=== PATIENT | female | born 1940 | race Caucasian/White ===

== ENCOUNTER 2022-02-09 08:18 | Inpatient (IN) | payer MEDICARE ==
[2022-02-09 09:03] LABS: Hemoglobin 9.7 g/dL (12.0-16.0); Mean Corpuscular HGB CONC 32.2 g/dL (32.0-36.0); Mean Corpuscular Hemoglobin 32.1 pg (27.0-31.0); Mean Corpuscular Volume 99.6 fl (78.0-98.0); Red Blood Cell (RBC) Count 3.01 mill/uL (4.20-5.40)
[2022-02-09 09:22] LABS: ALT (SGPT) 12 U/L (8-55); AST (SGOT) 20 U/L (5-34); Albumin 4.1 g/dL (3.4-4.8); Alkaline Phosphatase 95 U/L (40-110); Anion Gap 16 mmol/L (10-20); BUN (Urea Nitrogen) 15 mg/dL (9.8-20.1); Bilirubin, Total 2.1 mg/dL (0.2-1.2); Calc. Creatinine Clearance 0 mL/min (70-130); Calcium 9.3 mg/dL (7.8-10.44); Carbon Dioxide 26 mmol/L (23-31); Chloride 99 mmol/L (98-107); Estimated GFR 47; Globulin 2.2 g/dL (2.4-3.5); Glucose 202 mg/dL (83-110); Potassium 4.1 mmol/L (3.5-5.1); Protein, Total 6.3 g/dL (5.8-8.1); Sodium 137 mmol/L (136-145)
[2022-02-09 09:28] LABS: #Lymphocytes 0.6 thou/uL (1.20-3.40); #Monocytes 0.3 thou/uL (0.11-0.59); #Neutrophils 3.1 thou/uL (1.40-6.50); %Basophils 0.3 % (0.0-1.0); %Monocytes 7.3 % (0.0-10.0); %Neutrophils 77.4 % (42.0-75.0); Platelet Count 111 10x3/uL (130-400); Platelet Morphology Comment Appears Decreased; RBC Distribution Width 12.6 % (11.5-14.5); RBC Morphology Normal
[2022-02-09] MEDS ORDERED: Morphine 4 MG/ML VIAL ONE (10:20)
[2022-02-09] MEDS ORDERED: Ketorolac Tromethamine 30 MG/ML VIAL ONE (11:34)
[2022-02-09] MEDS ORDERED: Dextrose 5% in Water 1,000 ML IV PRN (12:20)
[2022-02-09] MEDS ORDERED: hydrALAZINE 20 MG/ML VIAL SLOW IVP PRN (12:20)
[2022-02-09] MEDS ORDERED: Ondansetron ODT 4 MG TAB PO PRN (12:20)
[2022-02-09] MEDS ORDERED: Dextrose 50% Abboject 50 ML SYRINGE SLOW IVP PRN (12:20)
[2022-02-09] MEDS ORDERED: Insulin Regular 300 UNITS/3 ML VIAL SC PRN ×2 (12:20)
[2022-02-09] MEDS ORDERED: Ondansetron PF 4 MG/2 ML Vial IVP PRN (12:20)
[2022-02-09] MEDS ORDERED: Acetaminophen/Codeine 30-300mg Tablet PO PRN (12:24)
[2022-02-09] MEDS ORDERED: Cyclobenzaprine 10 MG TAB PO PRN (12:26)
[2022-02-09] MEDS ORDERED: Morphine 4 MG/ML VIAL SLOW IVP PRN (12:42)
[2022-02-09] MEDS ORDERED: Clindamycin/D5W 900 MG in Premix Bag 1 BAG IVPB SCH (13:45)
[2022-02-09] MEDS: Acetaminophen 325 MG TAB PO SCH ×2 (17:27→23:19)
[2022-02-09 17:37] VITALS: BMI 32.2
[2022-02-09 19:18] LABS: Bacteria/HPF None Seen HPF (None Seen); Bilirubin Negative (Negative); Blood, Urine Negative (Negative); Clarity Clear (Clear); Glucose, Urine (Dipstick) Normal (Negative); Ketone, Urine Negative (Negative); Leukocyte Negative Leu/uL (Negative); Nitrite Negative (Negative); Protein, Urine (Dipstick) Negative (Neg-Trace); RBC/HPF 0-3 HPF (0-3); Specific Gravity, Urine 1.009 (1.002-1.036); Squamous Epithelial 0-3 HPF (0-3); Urobilinogen Normal mg/dL (Less than 2); WBC/HPF 0-3 HPF (0-3); pH, Urine 5.5 (5.0-9.0)
[2022-02-09] MEDS: Senokot S 8.6-50 MG TAB PO SCH (20:23)
[2022-02-09] MEDS ORDERED: Famotidine 20 MG TAB PO SCH (21:00)
[2022-02-09] MEDS ORDERED: Sodium Chloride 0.9% 1,000 ML IV SCH (23:00)
[2022-02-10] MEDS: Acetaminophen 325 MG TAB PO SCH ×4 (05:42→23:18)
[2022-02-10 05:55] LABS: #Lymphocytes 0.9 thou/uL (1.20-3.40); #Monocytes 0.3 thou/uL (0.11-0.59); #Neutrophils 2.2 thou/uL (1.40-6.50); %Basophils 0.5 % (0.0-1.0); %Eosinophils 0.7 % (0.0-10.0); %Lymphocytes 26.5 % (21.0-51.0); %Monocytes 8.1 % (0.0-10.0); %Neutrophils 64.2 % (42.0-75.0); Hemoglobin 8.8 g/dL (12.0-16.0); Mean Corpuscular HGB CONC 32.9 g/dL (32.0-36.0); Platelet Count 101 10x3/uL (130-400); RBC Distribution Width 12.5 % (11.5-14.5); Red Blood Cell (RBC) Count 2.66 mill/uL (4.20-5.40); White Blood Cell (WBC) Count 3.4 10x3/uL (4.8-10.8)
[2022-02-10 06:09] LABS: Phosphorus 3.2 mg/dL (2.3-4.7)
[2022-02-10 06:10] LABS: Anion Gap 13 mmol/L (10-20); BUN (Urea Nitrogen) 11 mg/dL (9.8-20.1); Calc. Creatinine Clearance 59 mL/min (70-130); Calcium 8.7 mg/dL (7.8-10.44); Carbon Dioxide 28 mmol/L (23-31); Chloride 104 mmol/L (98-107); Estimated GFR 62; Glucose 162 mg/dL (83-110); Magnesium 1.7 mg/dL (1.6-2.6); Potassium 3.6 mmol/L (3.5-5.1); Sodium 141 mmol/L (136-145)
[2022-02-10] MEDS ORDERED: Magnesium 2 GM/50 ML(in water) 2 GM in Premix Bag 1 BAG IVPB SCH (09:00)
[2022-02-10] MEDS ORDERED: Potassium Phosphate 30 MMOL, Magnesium Sulfate 2 GM in Sodium Chloride 0.9% 250 ML 250 ML IVPB SCH (09:00)
[2022-02-10] MEDS ORDERED: Albuterol Sulfate 2.5 mg/3 ml Neb NEB SCH (09:00)
[2022-02-10] MEDS: Carvedilol 6.25 MG TAB PO SCH ×2 (10:44→22:05)
[2022-02-10] MEDS: Polyethylene Glycol 3350 17 GM Packet PO SCH (10:45)
[2022-02-10] MEDS: Senokot S 8.6-50 MG TAB PO SCH ×2 (10:45→22:05)
[2022-02-10] MEDS: Fluticasone Propionate Nasal Spray 16 gm Bottle NASAL SCH (10:45)
[2022-02-10] MEDS: Ferrous Sulfate 325 MG TAB PO SCH (10:45)
[2022-02-10] MEDS: Nystatin Powder 15 GM BOT TOP SCH ×2 (15:18→22:06)
[2022-02-10] MEDS ORDERED: Dexmedetomidine 200 MCG/2 ML VIAL ONE (16:56)
[2022-02-10] MEDS ORDERED: Famotidine/PF 20 mg/2ml Vial ONE (16:56)
[2022-02-10] MEDS ORDERED: Ketamine 50 MG/ML (10ML VIAL) ONE (16:56)
[2022-02-10] MEDS ORDERED: Clindamycin/D5W 900 mg/50 ml Premix Bag ONE (17:05)
[2022-02-10] MEDS ORDERED: FENTANYL 50 MCG/ML 1 ML VIAL ONE ×2 (17:12→19:03)
[2022-02-10] MEDS ORDERED: Ondansetron PF 4 MG/2 ML Vial ONE (17:20)
[2022-02-10] MEDS ORDERED: Rocuronium Bromide 10 MG/ML (10ML VIAL) ONE (17:20)
[2022-02-10] MEDS ORDERED: Dexamethasone 20 MG/5 ML VIAL ONE (17:20)
[2022-02-10] MEDS ORDERED: Phenylephrine 10 MG/ML VIAL ONE (17:20)
[2022-02-10] MEDS ORDERED: PROPOFOL 200 MG/20 ML VIAL ONE (17:20)
[2022-02-10] MEDS ORDERED: PHENYLEPHRINE-NS 100 MCG/ML 10 ML SYRINGE ONE (18:19)
[2022-02-10] MEDS ORDERED: Promethazine HCl 25 MG/ML VIAL IM PRN (18:30)
[2022-02-10] MEDS ORDERED: PACU-Morphine 4MG/ML VIAL SLOW IVP PRN (18:30)
[2022-02-10] MEDS ORDERED: Ondansetron HCl/PF 4 MG/2 ML Vial IVP PRN (18:30)
[2022-02-10] MEDS ORDERED: Morphine Sulfate 2 MG/ML SYRINGE SLOW IVP PRN (18:30)
[2022-02-10] MEDS ORDERED: HYDROmorphone 2 MG/ML VIAL SLOW IVP PRN (18:30)
[2022-02-10] MEDS ORDERED: Promethazine HCl 25 MG/ML VIAL IVPB PRN (18:30)
[2022-02-10] MEDS ORDERED: SUGAMMADEX SODIUM 200 MG/2 ML VIAL ONE (18:44)
[2022-02-10] MEDS: Albuterol 200 PUFF (6.7GM INHALER) INH SCH (19:18)
[2022-02-10] MEDS: Clindamycin/D5W 900 MG in Premix Bag 1 BAG IVPB SCH (22:06)
[2022-02-10] MEDS: Donepezil HCl 10 MG TAB PO SCH (22:06)
[2022-02-11] MEDS: Clindamycin/D5W 900 MG in Premix Bag 1 BAG IVPB SCH (05:25)
[2022-02-11] MEDS: Acetaminophen 325 MG TAB PO SCH ×3 (05:25→17:40)
[2022-02-11] MEDS: Albuterol 200 PUFF (6.7GM INHALER) INH SCH ×2 (05:50→18:30)
[2022-02-11 06:04] LABS: #Lymphocytes 0.5 thou/uL (1.20-3.40); #Monocytes 0.2 thou/uL (0.11-0.59); #Neutrophils 4.9 thou/uL (1.40-6.50); %Eosinophils 0.2 % (0.0-10.0); %Lymphocytes 8.7 % (21.0-51.0); %Monocytes 2.9 % (0.0-10.0); %Neutrophils 88.2 % (42.0-75.0); Hemoglobin 8.6 g/dL (12.0-16.0); Mean Corpuscular HGB CONC 33.3 g/dL (32.0-36.0); Mean Platelet Volume 8.5 fL (7.4-10.4); Platelet Count 113 10x3/uL (130-400); RBC Distribution Width 12.5 % (11.5-14.5); Red Blood Cell (RBC) Count 2.52 mill/uL (4.20-5.40); White Blood Cell (WBC) Count 5.6 10x3/uL (4.8-10.8)
[2022-02-11 06:25] LABS: Anion Gap 13 mmol/L (10-20); BUN (Urea Nitrogen) 13 mg/dL (9.8-20.1); Calc. Creatinine Clearance 62 mL/min (70-130); Calcium 8.4 mg/dL (7.8-10.44); Carbon Dioxide 27 mmol/L (23-31); Chloride 106 mmol/L (98-107); Estimated GFR 66; Glucose 225 mg/dL (83-110); Magnesium 2.2 mg/dL (1.6-2.6); Phosphorus 5.2 mg/dL (2.3-4.7); Potassium 4.5 mmol/L (3.5-5.1); Sodium 141 mmol/L (136-145)
[2022-02-11] MEDS ORDERED: Ascorbic Acid 500 mg Chewable Tablet PO SCH (09:00)
[2022-02-11] MEDS: Polyethylene Glycol 3350 17 GM Packet PO SCH (09:24)
[2022-02-11] MEDS: Ascorbic Acid 500 mg Chewable Tablet PO SCH (09:27)
[2022-02-11] MEDS: Cholecalciferol 1,000 UNITS (25 MCG) TAB PO SCH (09:28)
[2022-02-11] MEDS: Carvedilol 6.25 MG TAB PO SCH ×2 (09:29→20:24)
[2022-02-11] MEDS: Atorvastatin Calcium 40 MG TAB PO SCH (09:29)
[2022-02-11] MEDS: valACYclovir 500 MG TAB PO SCH (09:31)
[2022-02-11] MEDS: Aspirin 81 mg Enteric Coated Tablet PO SCH ×2 (09:31→20:25)
[2022-02-11] MEDS: Senokot S 8.6-50 MG TAB PO SCH ×2 (09:35→20:23)
[2022-02-11] MEDS: Fluticasone Propionate Nasal Spray 16 gm Bottle NASAL SCH (09:37)
[2022-02-11] MEDS: Ferrous Sulfate 325 MG TAB PO SCH (09:38)
[2022-02-11] MEDS: Nystatin Powder 15 GM BOT TOP SCH ×2 (09:38→20:24)
[2022-02-11] MEDS: Acetaminophen/Codeine 30-300mg Tablet PO SCH ×2 (11:34→17:40)
[2022-02-11] MEDS: Insulin Regular 300 UNITS/3 ML VIAL SC PRN ×2 (14:18→17:47)
[2022-02-11] MEDS: Donepezil HCl 10 MG TAB PO SCH (20:25)
[2022-02-12] MEDS: Acetaminophen/Codeine 30-300mg Tablet PO SCH ×4 (01:17→18:46)
[2022-02-12] MEDS: Acetaminophen 325 MG TAB PO SCH ×4 (01:18→18:46)
[2022-02-12] MEDS: Insulin Regular 300 UNITS/3 ML VIAL SC PRN (06:29)
[2022-02-12] MEDS: Albuterol 200 PUFF (6.7GM INHALER) INH SCH ×2 (06:30→18:30)
[2022-02-12 07:28] LABS: #Basophils 0.1 thou/uL (0.0-0.2); #Lymphocytes 0.7 thou/uL (1.20-3.40); #Monocytes 0.2 thou/uL (0.11-0.59); #Neutrophils 3.4 thou/uL (1.40-6.50); %Basophils 1.2 % (0.0-1.0); %Eosinophils 0.2 % (0.0-10.0); %Lymphocytes 15.3 % (21.0-51.0); %Monocytes 5.5 % (0.0-10.0); %Neutrophils 77.7 % (42.0-75.0); Hemoglobin 7.6 g/dL (12.0-16.0); Mean Corpuscular Hemoglobin 33.9 pg (27.0-31.0); Mean Corpuscular Volume 99.6 fl (78.0-98.0); Mean Platelet Volume 8.9 fL (7.4-10.4); Platelet Count 120 10x3/uL (130-400); RBC Distribution Width 12.7 % (11.5-14.5); Red Blood Cell (RBC) Count 2.24 mill/uL (4.20-5.40); White Blood Cell (WBC) Count 4.4 10x3/uL (4.8-10.8)
[2022-02-12 07:48] LABS: Anion Gap 10 mmol/L (10-20); BUN (Urea Nitrogen) 22 mg/dL (9.8-20.1); Calc. Creatinine Clearance 49 mL/min (70-130); Calcium 8.7 mg/dL (7.8-10.44); Carbon Dioxide 27 mmol/L (23-31); Chloride 100 mmol/L (98-107); Estimated GFR 50; Glucose 275 mg/dL (83-110); Phosphorus 2.8 mg/dL (2.3-4.7); Sodium 133 mmol/L (136-145)
[2022-02-12] MEDS: Losartan 25 MG TAB PO SCH (08:29)
[2022-02-12] MEDS: Ascorbic Acid 500 mg Chewable Tablet PO SCH (08:29)
[2022-02-12] MEDS: Carvedilol 6.25 MG TAB PO SCH ×2 (08:29→20:49)
[2022-02-12] MEDS: Atorvastatin Calcium 40 MG TAB PO SCH (08:29)
[2022-02-12] MEDS: Senokot S 8.6-50 MG TAB PO SCH ×3 (08:30→20:59)
[2022-02-12] MEDS: Ferrous Sulfate 325 MG TAB PO SCH (08:30)
[2022-02-12] MEDS: valACYclovir 500 MG TAB PO SCH (08:30)
[2022-02-12] MEDS: metFORMIN 500 MG TAB PO SCH (08:30)
[2022-02-12] MEDS: Cholecalciferol 1,000 UNITS (25 MCG) TAB PO SCH (08:30)
[2022-02-12] MEDS: Fluticasone Propionate Nasal Spray 16 gm Bottle NASAL SCH (08:30)
[2022-02-12] MEDS: Aspirin 81 mg Enteric Coated Tablet PO SCH ×2 (08:30→20:49)
[2022-02-12] MEDS: Nystatin Powder 15 GM BOT TOP SCH ×2 (08:30→20:51)
[2022-02-12] MEDS: Polyethylene Glycol 3350 17 GM Packet PO SCH (08:31)
[2022-02-12] MEDS ORDERED: Torsemide 20 MG TAB PO SCH (09:00)
[2022-02-12] MEDS: Donepezil HCl 10 MG TAB PO SCH (20:51)
[2022-02-13] MEDS: Acetaminophen 325 MG TAB PO SCH ×4 (02:01→17:27)
[2022-02-13] MEDS: Acetaminophen/Codeine 30-300mg Tablet PO SCH ×4 (02:01→17:27)
[2022-02-13 06:06] LABS: #Lymphocytes 0.6 thou/uL (1.20-3.40); #Monocytes 0.4 thou/uL (0.11-0.59); #Neutrophils 3.1 thou/uL (1.40-6.50); %Basophils 0.2 % (0.0-1.0); %Eosinophils 1.2 % (0.0-10.0); %Lymphocytes 15.1 % (21.0-51.0); %Neutrophils 74.6 % (42.0-75.0); Hemoglobin 8.5 g/dL (12.0-16.0); Mean Corpuscular HGB CONC 33.4 g/dL (32.0-36.0); Mean Platelet Volume 8.6 fL (7.4-10.4); Platelet Count 111 10x3/uL (130-400); RBC Distribution Width 12.7 % (11.5-14.5); Red Blood Cell (RBC) Count 2.49 mill/uL (4.20-5.40); White Blood Cell (WBC) Count 4.1 10x3/uL (4.8-10.8)
[2022-02-13 07:11] LABS: Calcium 8.8 mg/dL (7.8-10.44); Chloride 102 mmol/L (98-107); Potassium 4.3 mmol/L (3.5-5.1); Sodium 131 mmol/L (136-145)
[2022-02-13 07:12] LABS: Glucose 197 mg/dL (83-110)
[2022-02-13 07:14] LABS: Carbon Dioxide 17 mmol/L (23-31)
[2022-02-13 07:15] LABS: Calc. Creatinine Clearance 66 mL/min (70-130); Estimated GFR 72; Phosphorus 2.8 mg/dL (2.3-4.7)
[2022-02-13 07:16] LABS: BUN (Urea Nitrogen) 15 mg/dL (9.8-20.1)
[2022-02-13 07:17] LABS: Magnesium 1.9 mg/dL (1.6-2.6)
[2022-02-13] MEDS ORDERED: Magnesium 2 GM/50 ML(in water) 2 GM in Premix Bag 1 BAG IVPB SCH (08:00)
[2022-02-13] MEDS: Polyethylene Glycol 3350 17 GM Packet PO SCH (08:47)
[2022-02-13] MEDS: Fluticasone Propionate Nasal Spray 16 gm Bottle NASAL SCH (08:47)
[2022-02-13] MEDS: Nystatin Powder 15 GM BOT TOP SCH ×2 (08:47→20:44)
[2022-02-13] MEDS: Cholecalciferol 1,000 UNITS (25 MCG) TAB PO SCH (08:48)
[2022-02-13] MEDS: Carvedilol 6.25 MG TAB PO SCH ×2 (08:48→20:43)
[2022-02-13] MEDS: metFORMIN 500 MG TAB PO SCH (08:48)
[2022-02-13] MEDS: Senokot S 8.6-50 MG TAB PO SCH ×2 (08:48→20:44)
[2022-02-13] MEDS: Losartan 25 MG TAB PO SCH (08:48)
[2022-02-13] MEDS: Ferrous Sulfate 325 MG TAB PO SCH (08:49)
[2022-02-13] MEDS: valACYclovir 500 MG TAB PO SCH (08:49)
[2022-02-13] MEDS: Ascorbic Acid 500 mg Chewable Tablet PO SCH (08:49)
[2022-02-13] MEDS: Aspirin 81 mg Enteric Coated Tablet PO SCH ×2 (08:49→20:43)
[2022-02-13] MEDS: Atorvastatin Calcium 40 MG TAB PO SCH (08:49)
[2022-02-13] MEDS ORDERED: Sodium Phosphate 30 MMOL in Sodium Chloride 0.9% 250 ML 250 ML IVPB SCH (09:00)
[2022-02-13 09:53] LABS: Anion Gap 16 mmol/L (10-20)
[2022-02-13] MEDS ORDERED: PHOS-NAK 1 PKT PACK PO SCH (10:15)
[2022-02-13] MEDS: Albuterol 200 PUFF (6.7GM INHALER) INH SCH ×2 (11:52→17:30)
[2022-02-13] MEDS: Insulin Regular 300 UNITS/3 ML VIAL SC PRN (11:53)
[2022-02-13] MEDS: Donepezil HCl 10 MG TAB PO SCH (20:44)
[2022-02-14] MEDS: Acetaminophen 325 MG TAB PO SCH ×5 (02:07→23:49)
[2022-02-14] MEDS: Acetaminophen/Codeine 30-300mg Tablet PO SCH ×5 (02:07→23:49)
[2022-02-14] MEDS: Albuterol 200 PUFF (6.7GM INHALER) INH SCH ×2 (06:16→18:27)
[2022-02-14 06:45] LABS: Anion Gap 11 mmol/L (10-20); BUN (Urea Nitrogen) 13 mg/dL (9.8-20.1); Calc. Creatinine Clearance 73 mL/min (70-130); Calcium 8.6 mg/dL (7.8-10.44); Carbon Dioxide 28 mmol/L (23-31); Chloride 102 mmol/L (98-107); Estimated GFR 80; Glucose 172 mg/dL (83-110); Magnesium 1.8 mg/dL (1.6-2.6); Phosphorus 3.3 mg/dL (2.3-4.7); Potassium 3.7 mmol/L (3.5-5.1); Sodium 137 mmol/L (136-145)
[2022-02-14] MEDS: Potassium Chloride 20 MEQ TAB PO SCH ×3 (09:35→22:04)
[2022-02-14] MEDS: Carvedilol 6.25 MG TAB PO SCH ×2 (09:35→22:05)
[2022-02-14] MEDS: Ascorbic Acid 500 mg Chewable Tablet PO SCH (09:36)
[2022-02-14] MEDS: Aspirin 81 mg Enteric Coated Tablet PO SCH ×2 (09:36→22:04)
[2022-02-14] MEDS: Ferrous Sulfate 325 MG TAB PO SCH (09:36)
[2022-02-14] MEDS: metFORMIN 500 MG TAB PO SCH (09:36)
[2022-02-14] MEDS: Cholecalciferol 1,000 UNITS (25 MCG) TAB PO SCH (09:36)
[2022-02-14] MEDS: valACYclovir 500 MG TAB PO SCH (09:36)
[2022-02-14] MEDS: Atorvastatin Calcium 40 MG TAB PO SCH (09:37)
[2022-02-14] MEDS: Fluticasone Propionate Nasal Spray 16 gm Bottle NASAL SCH (09:37)
[2022-02-14] MEDS: Losartan 25 MG TAB PO SCH (09:37)
[2022-02-14] MEDS: Torsemide 20 MG TAB PO SCH (09:37)
[2022-02-14] MEDS: Senokot S 8.6-50 MG TAB PO SCH ×2 (09:38→22:05)
[2022-02-14] MEDS: Polyethylene Glycol 3350 17 GM Packet PO SCH (09:38)
[2022-02-14] MEDS: Nystatin Powder 15 GM BOT TOP SCH ×2 (09:38→22:05)
[2022-02-14] MEDS: Insulin Regular 300 UNITS/3 ML VIAL SC PRN (12:07)
[2022-02-14] MEDS: Donepezil HCl 10 MG TAB PO SCH (22:05)
[2022-02-15] MEDS: Acetaminophen 325 MG TAB PO SCH ×2 (04:57→11:55)
[2022-02-15] MEDS: Acetaminophen/Codeine 30-300mg Tablet PO SCH ×2 (04:58→11:55)
[2022-02-15] MEDS: Torsemide 20 MG TAB PO SCH (09:03)
[2022-02-15] MEDS: Carvedilol 6.25 MG TAB PO SCH (09:04)
[2022-02-15] MEDS: Ascorbic Acid 500 mg Chewable Tablet PO SCH (09:04)
[2022-02-15] MEDS: Ferrous Sulfate 325 MG TAB PO SCH (09:04)
[2022-02-15] MEDS: Cholecalciferol 1,000 UNITS (25 MCG) TAB PO SCH (09:04)
[2022-02-15] MEDS: Aspirin 81 mg Enteric Coated Tablet PO SCH (09:04)
[2022-02-15] MEDS: Losartan 25 MG TAB PO SCH (09:04)
[2022-02-15] MEDS: valACYclovir 500 MG TAB PO SCH (09:04)
[2022-02-15] MEDS: metFORMIN 500 MG TAB PO SCH (09:05)
[2022-02-15] MEDS: Albuterol 200 PUFF (6.7GM INHALER) INH SCH (09:05)
[2022-02-15] MEDS: Potassium Chloride 20 MEQ TAB PO SCH (09:05)
[2022-02-15] MEDS: Atorvastatin Calcium 40 MG TAB PO SCH (09:05)
[2022-02-15] MEDS: Polyethylene Glycol 3350 17 GM Packet PO SCH (09:06)
[2022-02-15] MEDS: Nystatin Powder 15 GM BOT TOP SCH (09:06)
[2022-02-15] MEDS: Fluticasone Propionate Nasal Spray 16 gm Bottle NASAL SCH (09:06)
[2022-02-15] MEDS: Senokot S 8.6-50 MG TAB PO SCH (09:07)
[2022-02-15 11:21] VITALS: BP 124/73; TEMP 98
== END 2022-02-15 13:20 | DRG 521 ==
LOC: ERS 08:18 → ERHOLD 10:29 → SURG A 16:15
PROVIDERS: ADMIT Surgery; ATTEND Surgery
PROC: 8E0ZXY6 Isolation (ICD-10-PCS; 2022-02-09)
PROC: 0SRS0J9 Replacement of Left Hip Joint, Femoral Surface with Synthetic Substitute, Cemented, Open Approach (ICD-10-PCS; principal; 2022-02-10)
DX: S72.012A Unspecified intracapsular fracture of left femur, initial encounter for closed fracture (principal); U07.1 COVID-19; I13.0 Hypertensive heart and chronic kidney disease with heart failure and stage 1 through stage 4 chronic kidney disease, or unspecified chronic kidney disease; I50.32 Chronic diastolic (congestive) heart failure; I89.0 Lymphedema, not elsewhere classified; E11.22 Type 2 diabetes mellitus with diabetic chronic kidney disease; K21.9 Gastro-esophageal reflux disease without esophagitis; D63.1 Anemia in chronic kidney disease; W07.XXXA Fall from chair, initial encounter; N18.9 Chronic kidney disease, unspecified; G30.9 Alzheimer's disease, unspecified; F02.80 Dementia in other diseases classified elsewhere, unspecified severity, without behavioral disturbance, psychotic disturbance, mood disturbance, and anxiety; I25.10 Atherosclerotic heart disease of native coronary artery without angina pectoris; E03.9 Hypothyroidism, unspecified; Z86.73 Personal history of transient ischemic attack (TIA), and cerebral infarction without residual deficits; Z88.1 Allergy status to other antibiotic agents; Z88.0 Allergy status to penicillin; Z88.2 Allergy status to sulfonamides; Z79.899 Other long term (current) drug therapy
CPT/HCPCS: 36415; 36416; 71045; 72170; 80048; 80053; 81001; 83735; 83880; 84100; 84484; 85025; 93005; 93306; 96374; 96375; 97139; C1713; C1776; G0390; J1100; J1815; J1885; J2270; J2370; J2405; J2704; J3010; J3475; J3490; J7050; Q0162; S0028; U0003; U0005